=== PATIENT | female | born 1965 | race Caucasian/White ===

== ENCOUNTER → 2016-11-18 | Outpatient (CLI) | payer OTHER ==
[~2016-11-18] MED LIST: ACETAMINOPHEN PO; CIPRO PO; HYDROCODON-ACE1 EAC9 PO; IRON325 ( 652 PO; KETOPROFEN50 MG PO; PHENERGAN25 M1 PO; PROTONIX PO; ZOFRAN PO
--- NOTE | ~2016-11-18 | CT2 ---
[facility] RADIOLOGY TEXT RESULTS PATIENT: ONELIA CAPUTO LOCATION: [facility] : 67 UNIT #: [id number] AGE: [address]: Theodore Ayala MD SEX: F ORDER DR: [id number] [facility] [address] [place], [place] [address] [id number] O MR#: [id number] Acc #: [id number] NAME: ONELIA CAPUTO : 1965 SEX: F STUDY DATE/TIME: 11/18/2016 10:16 UNIT: [facility] ROOM: STUDY DESCRIPTION: CT Abd and Pelv W Cont Attending Physician: Theodore Ayala M.D. Referring Physician: Theodore Ayala M.D. Ordering Physician: Theodore Ayala M.D. Primary Care Physician: Elisa Benitez A.P.R.N. MEDICAL IMAGING REPORT This report is preliminary unless electronic signature is present EXAM CT abdomen and pelvis with contrast INDICATION Elevated liver enzyme levels. Iron deficiency. Pelvic pain for the past 3 months. PROCEDURE Contrast-enhanced CT of the abdomen and pelvis. 100 mL of Isovue-370. COMPARISON 07/04/[address] exam was performed with one or more of the following radiation dose reduction techniques: automatic exposure control, adjustment of mA and/or kV according to patient size, and iterative reconstruction. FINDINGS ABDOMEN WITHOUT CONTRAST: The included lung bases are clear. Liver borderline enlarged at 19.0 cm. Stable 10.0 mm cyst right hepatic lobe. No new liver lesion. The spleen, kidneys. adrenal glands, pancreas are unremarkable. Previous cholecystectomy. The bowel loops are nondilated. Appendix is normal. PELVIS WITH CONTRAST: Fibroids in the uterus. Dominant fibroid along the left anterior uterus measures up to 7.7 cm. Fibroid in the right side of the uterus measures 3.4 cm. No adnexal mass or pelvic fluid. No aggressive appearing bone lesion. IMPRESSION 1. No acute findings. [facility] RADIOLOGY TEXT RESULTS PATIENT: ONELIA CAPUTO LOCATION: [facility] : 67 UNIT #: [id number] AGE: [address]: Theodore Ayala MD SEX: F ORDER DR: 2. Fibroids in the uterus as detailed above could be a cause for the patient's pelvic pain. 3. Appendix is normal. 4. Other findings are detailed above. Dictated by... Henry Kaur M.D. THIS IS AN ELECTRONICALLY VERIFIED REPORT Henry Kaur M.D. at 11/18/2016 3:56 PM Fermin TD: 11/18/2016 11:55 JOB #: [id number] MEDICAL IMAGING REPORT Page 1 of 1 COPY
== END | disposition home or self-care (01) ==
LOC: CCAT 09:26
DX: K90.9 Intestinal malabsorption, unspecified (principal); D50.9 Iron deficiency anemia, unspecified; R79.89 Other specified abnormal findings of blood chemistry; D25.9 Leiomyoma of uterus, unspecified; R16.0 Hepatomegaly, not elsewhere classified; K76.89 Other specified diseases of liver; Z90.49 Acquired absence of other specified parts of digestive tract
CPT/HCPCS: 74177; Q9967